=== PATIENT | female | born 1940 | race Caucasian/White ===

== ENCOUNTER → 2017-03-30 | Outpatient (CLI) | payer MEDICARE, OTHER ==
[~2017-03-30] MED LIST: ACID CONTROL150 MG PO; LIPITOR TAB 2020 MG PO; NAMENDA5 MG PO; PANTOPRAZOLE SO40 MG PO; PROPRANOLOL HCL40 MG PO
[2017-03-30 15:13] LABS: HEMOGLOBIN 13.5 gm/dl (12.3-15.3); RED BLOOD COUNT 4.67 M/UL (4.00-5.10); WHITE BLOOD COUNT 9.3 K/UL (4.5-11.0)
== END ==
LOC: LAB 09:30 → MAMO 09:30
PROVIDERS: Physician Assistant
DX: Z12.31 Encounter for screening mammogram for malignant neoplasm of breast (principal); K92.1 Melena
CPT/HCPCS: 36415; 85025; G0202

== ENCOUNTER → 2017-04-17 | Day surgery (SDC) | payer MEDICARE, OTHER | END | disposition home or self-care (01) | LOC: OR 07:30 | PROVIDERS: Surgery | PROC: 06LY4CC Occlusion of Hemorrhoidal Plexus with Extraluminal Device, Percutaneous Endoscopic Approach (ICD-10-PCS; 2017-04-17) | PROC: 0DBL8ZZ Excision of Transverse Colon, Via Natural or Artificial Opening Endoscopic (ICD-10-PCS; principal; 2017-04-17 10:00) | DX: D12.3 Benign neoplasm of transverse colon (principal); K64.0 First degree hemorrhoids; K57.30 Diverticulosis of large intestine without perforation or abscess without bleeding; M13.0 Polyarthritis, unspecified; E78.2 Mixed hyperlipidemia; I10 Essential (primary) hypertension; E55.9 Vitamin D deficiency, unspecified; I49.5 Sick sinus syndrome; I44.2 Atrioventricular block, complete; M65.30 Trigger finger, unspecified finger; Z95.0 Presence of cardiac pacemaker; Z87.19 Personal history of other diseases of the digestive system; Z86.79 Personal history of other diseases of the circulatory system; Z87.440 Personal history of urinary (tract) infections; Z88.8 Allergy status to other drugs, medicaments and biological substances; Z79.891 Long term (current) use of opiate analgesic; Z98.49 Cataract extraction status, unspecified eye | CPT/HCPCS: J7120 ==

== ENCOUNTER → 2021-05-06 | Day surgery (SDC) | payer OTHER ==
[~2021-05-06] MED LIST changes: +ALEVE220 MG PO; +AMITRIPTYLINE H75 MG PO; +ASPIRIN EC81 MG PO; +ATORVASTATIN CA20 MG PO; +CLOPIDOGREL75 MG PO; +DITROPAN XL5 MG PO; +DRAMAMINE LESS25 MG PO; +ELAVIL 50 MG TA50 MG PO; +FLUTICASONE SPRAY; +HEARTBURN PREVE20 MG PO; +KEFLEX CAP 500500 MG PO; +KEFLEX500 MG PO; +LIPITOR40 MG PO; +LO-DOSE ASPIRIN81 MG PO; +MECLIZINE HCL25 MG PO; +MEDROL DOSEPAK 24 MG PO; +MYRBETRIQ50 MG PO; +NAMENDA 5 MG TAB5 MG PO; +OXYBUTYNIN CHLO10 MG PO; +PEPCID40 MG PO; +PERCOCET 5/325 T1 EA PO; +PLAVIX75 MG PO; +PROTONIX 40 MG40 M1 PO; +QUINAPRIL HCL5 MG PO; +ULTRAM50 MG PO; +ZOFRAN ODT 4 MG4 MG PO
== END | disposition home or self-care (01) ==
LOC: OR 07:10
PROVIDERS: Urology
PROC: 3E0K8GC Introduction of Other Therapeutic Substance into Genitourinary Tract, Via Natural or Artificial Opening Endoscopic (ICD-10-PCS; principal; 2021-05-06 12:30)
DX: N39.41 Urge incontinence (principal); R35.0 Frequency of micturition; E78.5 Hyperlipidemia, unspecified; I10 Essential (primary) hypertension; K21.9 Gastro-esophageal reflux disease without esophagitis; K44.9 Diaphragmatic hernia without obstruction or gangrene; J44.9 Chronic obstructive pulmonary disease, unspecified; M19.90 Unspecified osteoarthritis, unspecified site; Z20.822 Contact with and (suspected) exposure to COVID-19; Z88.0 Allergy status to penicillin; Z88.2 Allergy status to sulfonamides; Z88.5 Allergy status to narcotic agent; Z79.02 Long term (current) use of antithrombotics/antiplatelets; Z79.1 Long term (current) use of non-steroidal anti-inflammatories (NSAID); Z79.899 Other long term (current) drug therapy; Z87.891 Personal history of nicotine dependence; Z95.0 Presence of cardiac pacemaker; Z79.82 Long term (current) use of aspirin
CPT/HCPCS: J0585; J1956; J2001; J2405; J2704; J3010; J7030; J7040; J7120

== ENCOUNTER 2021-11-27 02:27 | Emergency (ER) | payer OTHER ==
[2021-11-27 03:32] LABS: HEMOGLOBIN 12.8 gm/dl (12.3-15.3); RED BLOOD COUNT 4.41 M/UL (4.00-5.10); WHITE BLOOD COUNT 9.7 K/UL (4.5-11.0)
[2021-11-27 04:02] LABS: BUN/CREATININE RATIO 14 (0-10)
== END 2021-11-27 06:09 | disposition home or self-care (01) ==
LOC: ER1 02:27
PROVIDERS: Physician Assistant
DX: I10 Essential (primary) hypertension (principal); M25.551 Pain in right hip; Z88.8 Allergy status to other drugs, medicaments and biological substances
CPT/HCPCS: 72131; 73502; 80053; 82550; 82553; 83874; 84484; 85025; 93005; 99284

== ENCOUNTER 2022-01-08 14:03 | Emergency (ER) | payer OTHER ==
[2022-01-08 15:23] LABS: HEMOGLOBIN 13.9 gm/dl (12.3-15.3); RED BLOOD COUNT 4.8 M/UL (4.00-5.10); WHITE BLOOD COUNT 14.7 K/UL (4.5-11.0)
== END 2022-01-08 16:45 | disposition home or self-care (01) ==
LOC: ER1 14:03
PROVIDERS: Physician Assistant
DX: K62.5 Hemorrhage of anus and rectum (principal); Z87.891 Personal history of nicotine dependence; I10 Essential (primary) hypertension; E78.5 Hyperlipidemia, unspecified; Z95.0 Presence of cardiac pacemaker
CPT/HCPCS: 80053; 85025; 99283

== ENCOUNTER 2022-01-13 19:26 | Emergency (ER) | payer OTHER ==
[2022-01-13 22:22] LABS: HEMOGLOBIN 13.7 gm/dl (12.3-15.3); RED BLOOD COUNT 4.82 M/UL (4.00-5.10); WHITE BLOOD COUNT 9.4 K/UL (4.5-11.0)
[2022-01-13 22:47] LABS: BUN/CREATININE RATIO 11 (0-10)
[2022-01-13] MEDS ORDERED: COLACE100 MG PO (23:57)
== END 2022-01-14 00:28 | disposition home or self-care (01) ==
LOC: ER1 19:26
PROVIDERS: Physician Assistant
DX: K64.4 Residual hemorrhoidal skin tags (principal); E78.5 Hyperlipidemia, unspecified; Z88.1 Allergy status to other antibiotic agents; Z91.041 Radiographic dye allergy status
CPT/HCPCS: 80053; 82272; 82550; 82553; 83874; 84484; 85025; 85610; 86850; 86900; 86901; 99283

== ENCOUNTER → 2022-03-10 | Outpatient (CLI) | payer OTHER ==
[~2022-03-10] MED LIST changes: +COLACE100 MG PO; +SOLIFENACIN SUCC5 MG PO
== END ==
LOC: EXRD 10:30
DX: M81.0 Age-related osteoporosis without current pathological fracture (principal)
CPT/HCPCS: 77080

== ENCOUNTER → 2022-06-02 | Outpatient (CLI) | payer OTHER | LOC: EXRD 13:00 | DX: N18.9 Chronic kidney disease, unspecified (principal) | CPT/HCPCS: 76775 ==

== ENCOUNTER → 2022-06-03 | Outpatient (CLI) | payer OTHER ==
[2022-06-04 09:15] LABS: MICROALB/CREAT RATIO <10 (0-29)
== END ==
LOC: LAB 12:32
PROVIDERS: Internal Medicine Nephrology
DX: N18.9 Chronic kidney disease, unspecified (principal)
CPT/HCPCS: 36415; 80053; 81001; 82043; 82570; 84156

== ENCOUNTER 2022-06-13 08:41 | Emergency (ER) | payer OTHER ==
[2022-06-13 09:45] LABS: RED BLOOD COUNT 4.38 M/UL (4.00-5.10); WHITE BLOOD COUNT 7.2 K/UL (4.5-11.0)
[2022-06-13 10:44] LABS: BUN/CREATININE RATIO 12 (0-10)
[2022-06-13] MEDS ORDERED: OMNICEF 300 MG300 MG PO (12:13)
== END 2022-06-13 13:05 | disposition home or self-care (01) ==
LOC: ER1 08:41
PROVIDERS: Emergency Medicine
DX: U07.1 COVID-19 (principal); J12.82 Pneumonia due to coronavirus disease 2019; R91.8 Other nonspecific abnormal finding of lung field; N39.0 Urinary tract infection, site not specified; E87.6 Hypokalemia; I10 Essential (primary) hypertension; Z86.73 Personal history of transient ischemic attack (TIA), and cerebral infarction without residual deficits; Z86.59 Personal history of other mental and behavioral disorders
CPT/HCPCS: 0240U; 70450; 71045; 80053; 81001; 82550; 82553; 84484; 85025; 87086; 93005; 96374; 99284; J0696; M0222

== ENCOUNTER 2022-08-03 02:47 | Emergency (ER) | payer OTHER ==
[~2022-08-03 02:47] MED LIST changes: +OMNICEF 300 MG300 MG PO
== END 2022-08-03 04:20 | disposition home or self-care (01) ==
LOC: ER1 02:47
DX: T83.9XXA Unspecified complication of genitourinary prosthetic device, implant and graft, initial encounter (principal); F03.90 Unspecified dementia, unspecified severity, without behavioral disturbance, psychotic disturbance, mood disturbance, and anxiety
CPT/HCPCS: 99283; J2250

== ENCOUNTER 2022-08-07 10:50 | Emergency (ER) | payer OTHER ==
[2022-08-07] MEDS ORDERED: FLOXIN 0.3% OTIC5 ML AD (12:03)
== END 2022-08-07 12:00 | disposition home or self-care (01) ==
LOC: ER1 10:50
DX: H60.92 Unspecified otitis externa, left ear (principal)
CPT/HCPCS: 99282